=== PATIENT | male | born 1945 | race Caucasian/White ===

== ENCOUNTER 2018-01-19 12:00 | Inpatient (IN) | payer OTHER ==
[~2018-01-19] VITALS: Ht 157.5 cm; Wt 90.7 kg
[~2018-01-19 12:00] MED LIST: ACETAMINOOPHEN-1 TAB PO; ALPRAZOLAM2 MG; AMBIEN10 MG PO; ASPIR 8181 MG; BUPROPION XL150 MG; CIPRO750 MG PO; CLONAZEPAM1 MG PO; Colace 100MG PO; DOCUSATE SODIU100 MG PO; GLIPIZIDE5 MG; LOSARTAN POTAS100 MG; METHYLPRED4 MG/DOSE- PO; NEURONTIN PO; PERCOCET 5/3251 TAB PO; TRADJENTA5 MG; VERAPAMIL ER240 MG
[2018-01-27] MEDS ORDERED: GABAPENTIN800 MG PO (10:16)
[2018-01-27] MEDS ORDERED: DOCUSATE SODIU100 MG PO (10:16)
[2018-01-27] MEDS ORDERED: CLONAZEPAM1 MG PO (10:17)
[2018-01-27] MEDS ORDERED: AMOX-CLAV 875-1 EACH PO (10:17)
[2018-01-27] MEDS ORDERED: PERCOCET 5-3251 EACH PO (10:17)
== END 2018-01-27 12:34 | disposition home or self-care (01) | DRG 455 ==
LOC: O/R 01-26 05:53 → PED 01-26 05:53 → SURG 01-26 12:00 → PED 01-26 18:05
PROVIDERS: Orthopaedic Surgery Orthopaedic Surgery of the Spine
PROC: 0SG1071 Fusion of 2 or more Lumbar Vertebral Joints with Autologous Tissue Substitute, Posterior Approach, Posterior Column, Open Approach (ICD-10-PCS; 2018-01-26)
PROC: 0ST20ZZ Resection of Lumbar Vertebral Disc, Open Approach (ICD-10-PCS; 2018-01-26)
PROC: 0SG10AJ Fusion of 2 or more Lumbar Vertebral Joints with Interbody Fusion Device, Posterior Approach, Anterior Column, Open Approach (ICD-10-PCS; 2018-01-26)
PROC: 07DS3ZZ Extraction of Vertebral Bone Marrow, Percutaneous Approach (ICD-10-PCS; 2018-01-26)
PROC: 0SG10A0 Fusion of 2 or more Lumbar Vertebral Joints with Interbody Fusion Device, Anterior Approach, Anterior Column, Open Approach (ICD-10-PCS; principal; 2018-01-26 16:00)
DX: M47.26 Other spondylosis with radiculopathy, lumbar region (principal); M41.56 Other secondary scoliosis, lumbar region; M51.16 Intervertebral disc disorders with radiculopathy, lumbar region; M48.061 Spinal stenosis, lumbar region without neurogenic claudication; E11.9 Type 2 diabetes mellitus without complications; I10 Essential (primary) hypertension